=== PATIENT | male | born 1960 | race Caucasian/White ===

== ENCOUNTER 2019-05-16 11:51 | Emergency (ER) | payer SELFPAY ==
[2019-05-16 12:07] VITALS: BP 136/72; PULSE 76; RESP 16; TEMP 36.4; O2SAT 99
--- NOTE | 2019-05-16 12:14 | ED.EYEPROB ---
HPI - Eye Problem General Chief complaint: Eye Problems Stated complaint: Rt eye pain/irritation Time Seen by Provider: 05/16/19 12:14 Source: patient and RN notes reviewed Mode of arrival: ambulatory Limitations: no limitations History of Present Illness HPI Narrative: This is a 59 years old male presented office for evaluation of right eye irritation since last night and worse this morning. About 2 days ago, there were saw dusts went into his eyes when he removed his cap. He tried to wash it out in the shower; but he still feel foreign body sensation under his eyelids. Admits to history of astigmatism supposed to wear glasses but he does not.He drove himself here. Related Data Allergies Allergy/AdvReac Type Severity Reaction Status Date / Time No Known Allergies Allergy Verified 05/16/19 12:14 Review of Systems Review of Systems: Narrative: CONSTITUTIONAL: Denies fever or feeling ill EYES: Reports right eye redness, discomfort, foreign sensitivity with foreign body sensation. ENT:Reports runny nose; contribute to eye irritation CARDIOVASCULAR: Denies chest pain RESPIRATORY: Denies cough GASTROINTESTINAL: Denies abdominal pain, nausea, vomiting MUSCULOSKELETAL: Denies acute back pain NEUROLOGIC: Denies dizziness/lightheaded. PMFSH Social History Social History Gender identity (if verbalized by the patient): Male Comments At time of signature, I agree with nursing past medical, surgical, social and family history. There is no relevant family history pertinent to the presenting complaint. Exam Narrative: Exam Narrative: GENERAL: This is a well-nourished, well-developed patient, in no apparent distress. EYES: PERRL. EMOI. Topical anesthetic was instilled with good anesthesia using 1gtt of opth anesthetic agent (tetracaine). Fluorescein stain of the R eye was performed with uptake of dye at 9'clock. No epithelial defect was noted. NO FB, ulcer or dendritic lesions. Upper lid was everted and no FB or lesions were noted. NO Ava sign. Normal saline irrigation eye solution was performed and the patient tolerated the procedure well, no adverse reaction or complications. CARDIOVASCULAR: Regular rate and rhythm without murmurs, gallops, or rubs. RESPIRATORY: Clear to auscultation except in the lower lobes noted wheezing with expiratory. Breath sounds equal bilaterally. No accessory muscle or pulse lip breathing. NEURO: awake, alert, and oriented to person, place and time. There were no obvious focal neurologic abnormalities. Steady gait [place] Coma Scale Eye Opening: Spontaneous 4 [place] Coma Scale Motor: Obeys Commands 6 [place] Coma Scale Verbal: Oriented 5 Course Vital Signs Vital signs: Vital Signs Temperature 97.5 F L 05/16/19 12:07 Pulse Rate 76 05/16/19 12:07 Respiratory Rate 16 05/16/19 12:07 Blood Pressure 136/72 05/16/19 12:07 Pulse Oximetry 99 05/16/19 12:07 Temperature 97.5 F L 05/16/19 12:07 Pulse Rate 76 05/16/19 12:07 Respiratory Rate 16 05/16/19 12:07 Blood Pressure 136/72 05/16/19 12:07 Pulse Oximetry 99 05/16/19 12:07 MDM - Eye Problem MDM Narrative Medical decision making narrative: I told the patient that he had a corneal abrasion at 9 oclock. Patient believes that he has saw dust underneath his eyelid. Stated he had this in the past, went to [facility], initially they told him that he has corneal abrasion; which he did not believe because he is a [place], aware that corneal abrasion usually heal in 24-hour. He said it took 5 people in the ER last time to found the foreign body underneath his eyelid. He is convinced that he still have the foreign body. I told the patient that I inverted and flushed his eye multiple times and there was no obvious foreign body that I can see at this time; corneal abrasion can mimic foreign body sensation and antibiotic ointment maybe essential to resolve his symptom/prevent further damage. I told the patient that he is welcome
== END 2019-05-16 12:37 | disposition home or self-care (01) ==
PROVIDERS: Emergency Provider Nurse Practitioner
DX: S05.01XA Injury of conjunctiva and corneal abrasion without foreign body, right eye, initial encounter (principal); X58.XXXA Exposure to other specified factors, initial encounter
CPT/HCPCS: 99203; A9270; G0463

== ENCOUNTER 2021-05-03 13:05 | Emergency (ER) | payer SELFPAY ==
[2021-05-03 13:07] VITALS: BP 155/74; PULSE 72; RESP 18; TEMP 36.4; O2SAT 100
[2021-05-03] MEDS: TETANUS,DIPHTHERIA,AC PERTUSSIS ADULT (0.5 ML) BOOSTRIX IM (14:13)
--- NOTE | 2021-05-03 14:40 | ED.GENADULT ---
HPI - General Adult General Chief complaint: Wound/Laceration Stated complaint: laceration Time Seen by Provider: 05/03/21 13:15 Source: patient and RN notes reviewed Mode of arrival: ambulatory Limitations: no limitations History of Present Illness HPI narrative: Patient presents with laceration to left thumb that occurred while using a razor knife patient notes aching pain states his tetanus is not up-to-date presents nondistressed. Patient notes minimal discomfort worse with touch. Related Data Allergies Allergy/AdvReac Type Severity Reaction Status Date / Time No Known Allergies Allergy Verified 05/03/21 13:12 Review of Systems Review of Systems: CONSTITUTIONAL: Denies fever, chills, or sweats. SKIN: Positive for laceration MUSCULOSKELETAL: Denies decreased range of motion or strength NEUROLOGIC: Denies numbness, or weakness. PMFSH Social History Social History (Updated 05/03/21 @ 14:53 by Juve Barrios PA-C) Smoking status: Current every day smoker Gender identity (if verbalized by the patient): Male Exam Narrative: GENERAL: Well-appearing, well-nourished, and in no acute distress. HEAD: Normocephalic, atraumatic. EYES: PERRLA and EOMI. ENT: Nares clear, no rhinorrhea or epistaxis. Mucous membranes moist. EXTREMITIES: Normal range of motion. No edema. SKIN: Warm, dry, no rash. 2 cm laceration left thumb mid thumb palmar aspect NEURO: No focal deficits. Alert and oriented x3. Neurovascularly intact. Capillary refill less than 2 seconds PSYCH: Normal mood and affect. Course Course Emergency Course: Patient in the room nondistressed aware of case findings treatment plan and diagnosis agreeing to follow-up as instructed ABCs and vital signs intact and stable Vital Signs Vital signs: Vital Signs Temperature 97.5 F L 05/03/21 13:07 Pulse Rate 72 05/03/21 13:07 Respiratory Rate 18 05/03/21 13:07 Blood Pressure 155/74 H 05/03/21 13:07 Pulse Oximetry 100 05/03/21 13:07 Temperature 97.5 F L 05/03/21 13:07 Pulse Rate 72 05/03/21 13:07 Respiratory Rate 18 05/03/21 13:07 Blood Pressure 155/74 H 05/03/21 13:07 Pulse Oximetry 100 05/03/21 13:07 Procedures Laceration Laceration 1: Date: 05/03/21 Time: 14:54 Site: upper extremity Side (If applicable): left Size (cm): 2 Description: linear Depth: simple, single layer Local Anesthetic: lidocaine 1% Pre-repair: wound explored, irrigated and irrigated extensively ====== Skin Level ====== Skin layer closed with: nylon Size (cm): 4-0 Number of sutures: 5 ====== Subcutaneous Layer ====== ====== Muscle Layer ====== ====== Tendon Layer ====== Other Procedure Procedure 1: Other Procedure: Antibiotic ointment nonadhesive 4 x 4 and Coban placed post procedure neurovascularly intact pre and post procedure Medical Decision Making MDM Narrative Medical decision making narrative: Patients injury or pain is consistent with musculoskeletal etiology. No signs of neurological or vascular compromise on exam. Vital Signs Vital Signs: Vital Signs Temperature 97.5 F L 05/03/21 13:07 Pulse Rate 72 05/03/21 13:07 Respiratory Rate 18 05/03/21 13:07 Blood Pressure 155/74 H 05/03/21 13:07 Pulse Oximetry 100 05/03/21 13:07 Temperature 97.5 F L 05/03/21 13:07 Pulse Rate 72 05/03/21 13:07 Respiratory Rate 18 05/03/21 13:07 Blood Pressure 155/74 H 05/03/21 13:07 Pulse Oximetry 100 05/03/21 13:07 Discharge Plan Discharge Clinical Impression: Laceration Patient Disposition: Home, Self-Care Condition: Stable Instructions: Antibiotic Form, Laceration (ED) Additional Instructions: Keep wound clean and dry. Do not soak, take baths, or swim until wound is completely healed. If any signs of infection such as redness, swelling, increasing pain, drainage of purulent discharge, streaks up your e
[2021-05-03] MEDS: LIDOCAINE HCL 1% LOCAL INJ 20 ML VIAL (14:41)
[2021-05-03 15:02] VITALS: BP 142/88; PULSE 78; RESP 18; O2SAT 98
== END 2021-05-03 15:02 | disposition home or self-care (01) ==
PROVIDERS: Emergency Provider Emergency Medicine
DX: S61.012A Laceration without foreign body of left thumb without damage to nail, initial encounter (principal); W27.8XXA Contact with other nonpowered hand tool, initial encounter; F17.210 Nicotine dependence, cigarettes, uncomplicated; Z23 Encounter for immunization
CPT/HCPCS: 12001; 90471; 90715; 99282